=== PATIENT | female | born 1980 | race Hispanic/Latino ===

== ENCOUNTER 2018-03-08 00:37 | Emergency (ER) | payer OTHER ==
[~2018-03-08] VITALS: Ht 175.3 cm; Wt 132.4 kg
[2018-03-08] MEDS ORDERED: PEPCID20 MG PO (01:09)
[2018-03-08] MEDS ORDERED: BROMFED DM COU118 ML PO (01:09)
[2018-03-08] MEDS ORDERED: XYZAL5 MG PO (01:09)
--- OUTSIDE RECORDS SUMMARY | 2018-04-22 03:09 | XMS REPORT | Summary of Care ---
Author Author [facility] Address Unknown Phone Unavailable Encounter HQ Andrewsr_stephanie(VIOLA) [phone] Date(s): 12/18/16 - 01/16/17 [facility] Discharge Disposition: Home or Self Care Attending Physician: Ashleigh Swenson MD Vital Signs No data available for this section Problem List No data available for this section Allergies, Adverse Reactions, Alerts No data available for this section Medications No data available for this section Results No data available for this section Immunizations No data available for this section Procedures No data available for this section Social History No data available for this section Assessment and Plan No data available for this section
--- OUTSIDE RECORDS SUMMARY | 2018-04-22 03:09 | XMS REPORT | CCD ---
Author Author [facility] [place] Address Unknown Phone Unavailable Care Team Providers Care Paginator Name Role Phone Nicola Rangel CP Allergies, Adverse Reactions, Alerts Substance Reaction Status NKDA Active Problem List Condition Effective Dates Status Toothache Active
--- OUTSIDE RECORDS SUMMARY | 2018-04-22 03:09 | XMS REPORT | Clinical Summary ---
Author Author [facility] Address Unknown Phone Unavailable Care Team Providers Care Electric Stove Mechanic Name Role Phone Han Bose MD PCP Unavailable Allergies No Known Allergies Current Medications Prescription Sig. Disp. Refills Start End Date Status Date sulfaSALAzine (AZULFIDINE Take 1,000 mg by mouth. 10/03/19 Active EN-TAB) [address] tablet 18 FOLIC ACID ORAL Take by mouth. Active lancets miscIndications: Test daily before all 3 each 0 12/04/19 Active Newly diagnosed diabetes meals/snacks and once 18 (HCC) before bedtime. blood-glucose meter Use as instructed 1 each 0 12/04/19 12/04/19 Active (ONETOUCH ULTRAMINI) 18 19 kitIndications: Newly diagnosed diabetes ([facility]) ONETOUCH ULTRA TEST strip Test daily before all 100 strip 0 12/26/19 Active test stripsIndications: meals/snacks and once 18 Newly diagnosed diabetes before bedtime. ([facility]) dapagliflozin-metformin Take 1 tablet by mouth 90 each 0 01/02/20 Active 5-1,000 mg tablet, IR & daily. 18 ER, biphasic 24hrIndications: Newly diagnosed diabetes ([facility]) desog-e.estradiol/e.estra TAKE 1 TABLET DAILY 01/27/20 Active diol (VIORELE, 28,) (RETURN TO [facility] 18 0.15-0.02 mgx21 /0.01 mg [facility] FOR x 5 per tablet REFILLS) famotidine (PEPCID) 20 MG Twice A Day 03/08/20 Active tablet 18 buPROPion XL (WELLBUTRIN Take 1 tablet (150 mg 90 tablet 1 04/09/20 04/09/20 Active XL) 150 MG 24 hr total) by mouth daily. 18 19 tabletIndications: Moderate episode of recurrent major depressive disorder (HCC) triamcinolone (KENALOG) Apply topically 2 (two) 30 g 0 04/18/20 Active 0.5 % ointment times a day. 18 19 diclofenac (VOLTAREN) 50 Take 50 mg by mouth. 10/22/19 02/27/20 Discontin MG EC tablet 18 18 ued desog-e.estradiol/e.estra Take 1 tablet by mouth. 11/03/19 02/27/20 Discontin diol (KARIVA) 0.15-0.02 18 18 ued mgx21 /0.01 mg x 5 per tablet ONETOUCH ULTRA TEST strip Test daily before all 100 strip 0 12/04/19 12/26/19 Discontin test stripsIndications: meals/snacks and once 18 18 ued Newly diagnosed diabetes before bedtime. (HCC) metFORMIN (GLUCOPHAGE) Take 1 tablet (500 mg 60 tablet 2 12/04/19 Discontin 500 mg tabletIndications: total) by mouth 2 (two) 18 18 ued Newly diagnosed diabetes times a day with meals. (HCC) diclofenac (VOLTAREN) 50 Take 1 tablet (50 mg 180 tablet 0 02/27/20 04/09/20 Discontin MG EC tabletIndications: total) by mouth 2 (two) 18 18 ued Inflammatory arthritis times a day. buPROPion XL (WELLBUTRIN Take 1 tablet (150 mg 90 tablet 0 02/27/20 04/09/20 Discontin XL) 150 MG 24 hr total) by mouth daily. 18 18 ued tabletIndications: Moderate episode of recurrent major depressive disorder ([facility]) Active Problems Problem Noted Date Moderate episode of recurrent major depressive disorder ([facility]) 04/10/2018 Inflammatory arthritis 02/26/2018 Overview: Seeing Dr. oDuglas - 36 y/o F who presents for follow up for joint pain and swelling. Exam is concerning with swelling of her joint and synovitis as well as symptoms that can be seen in an inflammatory arthritis. Axial symptoms may be inflammatory as well. Given negative serologies and question of inflammatory back pain will evaluate for inflammation with MRI Sacrum. 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 Inflammatory arthritis - Start sulfasalazine at 500 mg once daily and titrate dose up over 2 week to a dose of 1000mg twice a day - Discussed adverse effects including photosensitivity,allergic reactions,cytopenias,LFT changes and low sperm counts and need for lab monitoring with the patient - Repeat labs 1 month after starting or dose increases then every 3-4 months once on a stable dose - Start steroid taper for ongoing hand inflammation Newly diagnosed diabetes (HCC) 01/01/2018 Overview: Tolerating the metformin and she states her sugars are still staying up. Has lost weight. Does feel its curbing her appetite. Eye exam in July was good. No other side effects. L ast Assessment & Plan: Diabetes is improving. Start farxiga combo with metformin. Follow up in February. Leukocytosis 03/26/2017 Family history of diabetes mellitus 10/15/2016 Irregular menses 05/14/2012 Overview: Overview: Regulated with OCP in the past; 04/30: restarted. Obesity (BMI 30-39.9) 05/14/2012 Overview: Working out; lost 3 lbs. L ast Assessment & Plan: Continue to focus on low carb and HIT. Encounters Date Type Specialty Care Team Description 04/18/2018 Orders Only Internal Medicine Eugenia Bose MD 04/09/2018 Office Visit Internal Medicine Eugenia Bose MD Moderate episode of recurrent major depressive disorder (Primary Dx); Newly diagnosed diabetes; Nasal congestion; Need for influenza vaccination 02/26/2018 Office Visit Internal Medicine uEgenia Bose MD Newly diagnosed diabetes (Primary Dx); Inflammatory arthritis; Moderate episode of recurrent major depressive disorder 02/24/2018 Lab Lab Eugenia Bose MD Newly diagnosed diabetes 01/01/2018 Office Visit Internal Medicine Eugenia Bose MD Newly diagnosed diabetes (Primary Dx); Obesity (BMI 30-39.9) 12/25/2017 Telephone Family Medicine Ruslan Gonzalez LVN Newly diagnosed diabetes 12/03/2017 Office Visit Internal Medicine Eugenia Bose MD Newly diagnosed diabetes (Primary Dx) 11/16/2017 Telephone Family Medicine Eugenia Bose MD 11/13/2017 Lab Lab Eugenia Bose MD Annual physical exam 11/13/2017 Office Visit Internal Medicine Eugenia Bose MD Annual physical exam (Primary Dx) after 03/07/2017 Immunizations Name Dates Previously Given Next Due FLUBLOK QUAD PF 04/09/2018 Influenza Trivalent 04/24/2016, 05/04/2015 Tdap 05/14/2012 Family History Medical History Relation Name Comments Hypertension Father Diabetes Mother Heart disease Mother Hypertension Mother Kidney failure Mother Lupus Mother Rheum arthritis Mother Relation Name Status Comments Father Mother Social History Tobacco Use Types Packs/Day Years Used Date Never Smoker Smokeless Tobacco: Never Used Alcohol Use Drinks/Week oz/Week Comments Yes Sex Assigned at Date Recorded Not on file Last Filed Vital Signs Vital Sign Reading Time Taken Blood Pressure 139/92 04/09/2018 1:42 PM CDT Pulse 102 04/09/2018 1:42 PM CDT Temperature - - Respiratory Rate 16 04/09/2018 1:42 PM CDT Oxygen Saturation 96% 04/09/2018 1:42 PM CDT Inhaled Oxygen - - Concentration Weight 131 kg (288 lb) 04/09/2018 1:42 PM CDT Height 175.3 cm (5' 9") 04/09/2018 1:42 PM CDT Body Mass Index 42.53 04/09/2018 1:42 PM CDT Plan of Treatment Date Type Specialty Care Team Description 06/30/2018 Office Visit Rheumatology Elfego James MD [address] [facility] [address] [place], [place] [id number] 07/08/2018 Office Visit Internal Medicine Eugenia Bose MD [address] [facility] [address] [place] [address] Health Maintenance Due Date Last Done Comments DIABETIC FOOT EXAM 12/04/1989 DIABETIC RETINAL EYE EXAM 12/04/1989 CERVICAL CANCER SCREENING 12/04/2000 URINE MICROALBUMIN 02/24/2019 02/24/2018 INFLUENZA VACCINE Completed 04/09/2018, 04/24/2016, 05/04/2015 Procedures Procedure Name Priority Date/Time Associated Diagnosis Comments MICROALBUMIN / CREATININE Routine 02/24/2018 Newly diagnosed diabetes Results for this URINE RATIO 11:41 AM CDT procedure are in the results section. HEMOGLOBIN A1C Routine 02/24/2018 Newly diagnosed diabetes Results for this 11:41 AM CDT procedure are in the results section. COMPREHENSIVE METABOLIC Routine 02/24/2018 Newly diagnosed diabetes Results for this PANEL 11:41 AM CDT procedure are in the results section. VITAMIN B12 AND FOLATE Routine 11/13/2017 Annual physical exam Results for this 11:47 AM CDT procedure are in the results section. MAGNESIUM LEVEL Routine 11/13/2017 Annual physical exam Results for this 11:47 AM CDT procedure are in the results section. HIV 1/2 ANTIGEN/ANTIBODY, Routine 11/13/2017 Annual physical exam Results for this FOURTH GENERATION W/RFL 11:47 AM CDT procedure are in the results section. VITAMIN D 25 HYDROXY Routine 11/13/2017 Annual physical exam Results for this LEVEL 11:47 AM CDT procedure are in the results section. HEMOGLOBIN A1C Routine 11/13/2017 Annual physical exam Results for this 11:47 AM CDT procedure are in the results section. LIPID PANEL Routine 11/13/2017 Annual physical exam Results for this 11:47 AM CDT procedure are in the results section. T4, FREE Routine 11/13/2017 Annual physical exam Results for this 11:47 AM CDT procedure are in the results section. THYROID STIMULATING Routine 11/13/2017 Annual physical exam Results for this HORMONE 11:47 AM CDT procedure are in the results section. CBC WITH PLATELET AND Routine 11/13/2017 Annual physical exam Results for this DIFFERENTIAL 11:47 AM CDT procedure are in the results section. COMPREHENSIVE METABOLIC Routine 11/13/2017 Annual physical exam Results for this PANEL 11:47 AM CDT procedure are in the results section. after 03/07/2017 Results * Microalbumin / creatinine urine ratio (02/24/2018 11:41 AM) Creatinine, urine, random 260.8 Not Estab. mg/dL [facility] Microalbumin, urine 10.9 Not Estab. ug/mL [facility] Microalbumin/creatinine 4.2 0.0 - 30.0 mg/g creat [facility] ratio Specimen Blood Narrative Performed At Performed at: [facility] [address] [place], [place] [id number] Safety Deposit Clerk: Marky Emery MD, Phone: [phone] Performing Organization Address City/State/Zipcode Phone Number [facility] * Hemoglobin A1c (02/24/2018 11:41 AM) Only the most recent of 2 results within the time period is included. Hemoglobin A1C 6.5 (H) 4.8 - 5.6 % [facility] Comment: Pre-diabetes: 5.7 - 6.4 Diabetes: >6.4 Glycemic control for adults with diabetes: <7.0 Specimen Blood Narrative Performed At Performed at: [facility] [address] [place], [place] [id number] Safety Deposit Clerk: Marky Emery MD, Phone: [phone] Performing Organization Address [facility] Phone Number [facility] * Comprehensive metabolic panel (02/24/2018 11:41 AM) Only the most recent of 2 results within the time period is included. Glucose 109 (H) 65 - 99 mg/dL [facility] BUN, whole blood 7 6 - 20 mg/dL [facility] Creatinine 0.49 (L) 0.57 - 1.00 mg/dL [facility] EGFR Non-Afr. Cook Islander 124 >59 mL/min/1.73 [facility] EGFR 143 >59 mL/min/1.73 [facility] BUN/creatinine ratio 14 9 - 23 [facility] Sodium 139 134 - 144 mmol/L [facility] Potassium 4.2 3.5 - 5.2 mmol/L [facility] Chloride 102 96 - 106 mmol/L [facility] CO2 22 20 - 29 mmol/L [facility] Calcium 8.7 8.7 - 10.2 mg/dL [facility] Protein 6.3 6.0 - 8.5 g/dL [facility] Albumin, S 3.5 3.5 - 5.5 g/dL [facility] Globulin, total 2.8 1.5 - 4.5 g/dL [facility] Albumin/globulin ratio 1.3 1.2 - 2.2 [facility] Total bilirubin 0.2 0.0 - 1.2 mg/dL [facility] Alkaline phosphatase 52 39 - 117 IU/L [facility] AST 14 0 - 40 IU/L [facility] ALT 10 0 - 32 IU/L [facility] Specimen Blood Narrative Performed At Performed at: [facility] [address] [place], [place] [id number] Safety Deposit Clerk: Marky Emery MD, Phone: [phone] Performing Organization Address [facility] Phone Number [facility] * Vitamin B12 and Folate (11/13/2017 11:47 AM) Vitamin B12 348 232 - 1,245 pg/mL [facility] Folate >19.9 >3.0 ng/mL [facility] Comment: A serum folate concentration of less than 3.1 ng/mL is considered to represent clinical deficiency. Specimen Blood Narrative Performed At Performed at: - [facility] [address] [place], [place] [id number] Safety Deposit Clerk: Marky Emery MD, Phone: [phone] Performing Organization Address [facility] Phone Number [facility] * HIV 1/2 ANTIGEN/ANTIBODY, FOURTH GENERATION W/RFL (11/13/2017 11:47 AM) HIV AG/AB 4th gen Non Reactive Non Reactive [facility] Specimen Blood Narrative Performed At Performed at: [facility] [address] [place], [place] [id number] Safety Deposit Clerk: Marky Emery MD, Phone: [phone] Performing Organization Address [facility] Phone Number [facility] * Vitamin D 25 hydroxy level (11/13/2017 11:47 AM) Vitamin D, 25-hydroxy 15.1 (L) 30.0 - 100.0 ng/mL [facility] Comment: Vitamin D deficiency has been defined by the [place] of Medicine and an Endocrine Society practice guideline as a level of serum 25-OH vitamin D less than 20 ng/mL (1,2). The Endocrine Society went on to further define vitamin D insufficiency as a level between 21 and 29 ng/mL (2). 1. IOM ([place] of Medicine). 2010. Dietary reference intakes for calcium and D. [place]: The National Academies Press. 2. Lily MF, Rosa NC, Marissa SHEPPARD, et al. Evaluation, treatment, and prevention of vitamin D deficiency: an Endocrine Society clinical practice guideline. JCEM. 2010; 96(7):1911-30. Specimen Blood Narrative Performed At Performed at: [facility] [address] [place], [place] [id number] Safety Deposit Clerk: Marky Emery MD, Phone: [phone] Performing Organization Address [facility] Phone Number [facility] * CBC with platelet and differential (11/13/2017 11:47 AM) WBC 15.1 (H) 3.4 - 10.8 x10E3/uL [facility] RBC 4.65 3.77 - 5.28 x10E6/uL [facility] HGB 15.3 11.1 - 15.9 g/dL [facility] HCT 43.8 34.0 - 46.6 % [facility] MCV 94 79 - 97 fL [facility] MCH 32.9 26.6 - 33.0 pg [facility] MCHC 34.9 31.5 - 35.7 g/dL [facility] RDW 14.0 12.3 - 15.4 % [facility] Platelet count 314 150 - 379 x10E3/uL [facility] Neutrophils 67 Not Estab. % [facility] Lymphocytes 26 Not Estab. % [facility] Monocytes 5 Not Estab. % [facility] Eosinophils 2 Not Estab. % [facility] Basophils 0 Not Estab. % [facility] Neutrophils, absolute 10.1 (H) 1.4 - 7.0 x10E3/uL [facility] Lymphocytes, absolute 3.9 (H) 0.7 - 3.1 x10E3/uL [facility] Monocytes, absolute 0.7 0.1 - 0.9 x10E3/uL [facility] Eosinophils, absolute 0.3 0.0 - 0.4 x10E3/uL [facility] Basophils, absolute 0.0 0.0 - 0.2 x10E3/uL [facility] Immature granulocytes 0 Not Estab. % [facility] Immature grans (abs) 0.0 0.0 - 0.1 x10E3/uL [facility] Specimen Blood Narrative Performed At Performed at: [address] [id number] Safety Deposit Clerk: Marky Emery MD, Phone: [phone] Performing Organization Address [facility] Phone Number [facility] * Thyroid stimulating hormone (11/13/2017 11:47 AM) TSH 1.570 0.450 - 4.500 uIU/mL [facility] Specimen Blood Narrative Performed At Performed at: [address] [id number] Safety Deposit Clerk: aMrky Emery MD, Phone: [phone] Performing Organization Address [facility] * T4, free (11/13/2017 11:47 AM) T4, free 1.08 0.82 - 1.77 ng/dL [facility] Specimen Blood Narrative Performed At Performed at: - [facility] [address] [place], [place] [id number] Safety Deposit Clerk: Marky Emery MD, Phone: [phone] Performing Organization Address [facility] Phone Number [facility] * Magnesium level (11/13/2017 11:47 AM) Magnesium 2.2 1.6 - 2.3 mg/dL [facility] Specimen Blood Narrative Performed At Performed at: - [facility] [address] [place], [place] [id number] Safety Deposit Clerk: Marky Emery MD, Phone: [phone] Performing Organization Address [facility] Phone Number [facility] * Lipid panel (11/13/2017 11:47 AM) Cholesterol 152 100 - 199 mg/dL [facility] Triglycerides 152 (H) 0 - 149 mg/dL [facility] HDL cholesterol 55 >39 mg/dL [facility] VLDL cholesterol conner 30 5 - 40 mg/dL [facility] LDL cholesterol 67 0 - 99 mg/dL [facility] calculated Non-HDL cholesterol 97 0 - 129 mg/dL [facility] Specimen Blood Narrative Performed At Performed at: - [facility] [address] [place], [place] [id number] Safety Deposit Clerk: Marky Emery MD, Phone: [phone] Performing Organization Address [facility] Phone Number [facility] after 03/07/2017 Insurance Payer Benefit Subscriber ID Type Phone Address Plan / Group CIGNA CIGNA OPEN xxxxxxxxxxx HMO ACCESS/NET WORK
--- OUTSIDE RECORDS SUMMARY | 2018-04-22 03:09 | XMS REPORT | Summary of Care ---
Author Author [facility] Address Unknown Phone Unavailable Encounter HQ Andrewsr_stephanie(VIOL[place]) [id number] Date(s): 11/05/16 - 12/04/16 [facility] Discharge Disposition: Home or Self Care [...]
== END 2018-03-08 01:20 | disposition home or self-care (01) ==
LOC: FSED 00:37
DX: R05 Cough (principal); J02.9 Acute pharyngitis, unspecified; J00 Acute nasopharyngitis [common cold]; B34.9 Viral infection, unspecified; J30.2 Other seasonal allergic rhinitis; E11.9 Type 2 diabetes mellitus without complications
CPT/HCPCS: 99283